=== PATIENT | female | born 1975 | race Caucasian/White ===

== ENCOUNTER 2017-02-05 09:59 | Observation (INO) | payer OTHER ==
[2017-02-04 11:58] LABS: ASPARTATE AMINO TRANSFERASE 35 U/L (15-37); BLOOD UREA NITROGEN 9 mg/dL (7-18)
[~2017-02-05] VITALS: Ht 167.6 cm; Wt 112.0 kg
[~2017-02-05 09:59] MED LIST: CELE200C PO; LISI-167 PO; METF500T4 PO; OMEP20TA62 PO; PRAV10TA2 PO; TRAM100T2 PO
[2017-02-05] MEDS: LACTATED RINGERS 1,000 ML IV SCH ×2 (11:16→19:00)
[2017-02-05] MEDS ORDERED: GABAPENTIN 300 MG CAPSULE ONE (12:45)
[2017-02-05] MEDS ORDERED: SCOPOLAMINE PATCH, 1.5MG PATCH.TD72 TD ONE ×2 (12:45)
[2017-02-05] MEDS ORDERED: ACETAMINOPHEN 500 MG TABLET ONE (12:45)
[2017-02-05] MEDS ORDERED: FENTANYL PF 250 MCG/5ML ONE (12:51)
[2017-02-05] MEDS ORDERED: MIDAZOLAM 1 MG/ML, 2ML ONE (12:51)
[2017-02-05] MEDS ORDERED: DEXAMETHASONE 4 MG/ML, 1ML ONE (13:43)
[2017-02-05] MEDS ORDERED: CEFAZOLIN 1,000 MG ONE (13:43)
[2017-02-05] MEDS ORDERED: PROPOFOL 10 MG/ML, 20ML ONE (13:43)
[2017-02-05] MEDS ORDERED: HYDROmorphone 2 MG/ML, 1ML ONE ×2 (14:41→17:37)
[2017-02-05] MEDS ORDERED: OXYcodone 5 MG/5 ML ORAL.SOL UDC PO PRN (15:00)
[2017-02-05] MEDS ORDERED: MEPERIDINE/PF 25MG/0.5ML IVPush PRN (15:00)
[2017-02-05] MEDS ORDERED: ALBUTEROL SULFATE 2.5 MG/3 ML NPPB PRN (15:00)
[2017-02-05] MEDS ORDERED: hydrALAzine 20 MG/ML, 1ML IV PRN (15:00)
[2017-02-05] MEDS ORDERED: LABETALOL 5MG/ML, 20ML IV PRN (15:00)
[2017-02-05] MEDS ORDERED: ACETAMINOPHEN 325 MG TABLET PO PRN (15:00)
[2017-02-05] MEDS ORDERED: PROMETHAZINE 25 MG/ML, 1ML IV PRN (15:00)
[2017-02-05] MEDS ORDERED: MAGNESIUM HYDROXIDE 8%, 30ML UDC PO PRN (16:00)
[2017-02-05] MEDS ORDERED: SENNA/DOCUSATE TABLET PO PRN (16:00)
[2017-02-05] MEDS ORDERED: ONDANSETRON 2MG/ML, 2ML IVPush PRN (16:00)
[2017-02-05] MEDS ORDERED: BISACODYL 10 MG SUPP PR PRN (16:00)
[2017-02-05] MEDS ORDERED: CEFAZOLIN PMX 2GM/50ML 50 ML IVPB SCH (16:00)
[2017-02-05] MEDS ORDERED: PROMETHAZINE 25 MG/ML, 1ML IM PRN (16:00)
[2017-02-05] MEDS ORDERED: ACETAMINOPHEN 650 MG/20.3 ML UDC ONE (16:04)
[2017-02-05] MEDS ORDERED: OXYcodone 5 MG/5 ML ORAL.SOL UDC ONE (16:04)
[2017-02-05] MEDS ORDERED: LORazepam 2 MG/ML, 1ML ONE (16:04)
[2017-02-05] MEDS ORDERED: FENTANYL PF 100 MCG/2ML ONE (16:05)
[2017-02-05] MEDS: OXYcodone 5 MG/5 ML ORAL.SOL UDC PO PRN (16:07)
[2017-02-05] MEDS: ACETAMINOPHEN 325 MG TABLET PO PRN (16:08)
[2017-02-05] MEDS: FENTANYL PF 100 MCG/2ML IV PRN ×4 (16:15→17:13)
[2017-02-05] MEDS: LORazepam 2 MG/ML, 1ML IVPush PRN ×2 (16:21→16:33)
[2017-02-05] MEDS ORDERED: CEFAZOLIN 2,000 MG in DEXTROSE 5% 50 ML IVPB SCH (16:30)
[2017-02-05] MEDS: HYDROmorphone 1 MG/ML, 1ML IV PRN ×2 (17:39→17:48)
[2017-02-05 18:37] VITALS: BP 145/90
[2017-02-05] MEDS: KETOROLAC 30 MG/1 ML IVPush SCH (18:45)
[2017-02-05] MEDS: HYDROcodone/APAP 5/325 TABLET PO PRN (20:31)
[2017-02-05 23:40] VITALS: BP 137/87
[2017-02-06] MEDS: morphine SULFATE 10 MG/ML, 1ML IVPush PRN ×7 (00:03→23:19)
[2017-02-06 03:02] VITALS: BP 113/67
[2017-02-06] MEDS: KETOROLAC 30 MG/1 ML IVPush SCH ×2 (03:25→11:31)
[2017-02-06] MEDS: OXYcodone 5 MG/5 ML ORAL.SOL UDC PO PRN ×6 (03:26→23:11)
[2017-02-06 06:40] VITALS: BP 134/88
[2017-02-06] MEDS: MULTIVITAMINS/MINERALS TABLET PO SCH (08:12)
[2017-02-06 13:55] VITALS: BP 103/62
[2017-02-06 20:51] VITALS: BP 120/75
[2017-02-06] MEDS: HYDROcodone/APAP 5/325 TABLET PO PRN (20:56)
[2017-02-07] MEDS ORDERED: OXYC5CAP2 PO (01:43)
[2017-02-07] MEDS ORDERED: ASPI-650 PO (01:45)
[2017-02-07] MEDS ORDERED: ONDA4TAB7 PO (01:45)
[2017-02-07] MEDS: HYDROcodone/APAP 5/325 TABLET PO PRN (02:21)
[2017-02-07] MEDS: OXYcodone 5 MG/5 ML ORAL.SOL UDC PO PRN ×3 (03:26→11:43)
[2017-02-07 03:59] VITALS: BP 100/60
[2017-02-07 07:09] VITALS: BP_SYST 129; BP_SYST 69; BP_DIAS 60; BP_DIAS 83
[2017-02-07] MEDS: morphine SULFATE 10 MG/ML, 1ML IVPush PRN (07:47)
[2017-02-07] MEDS: MULTIVITAMINS/MINERALS TABLET PO SCH (09:41)
[2017-02-07] MEDS: HYDROmorphone 2MG TABLET PO PRN ×2 (09:41→13:23)
[2017-02-07] MEDS: ACETAMINOPHEN 325 MG TABLET PO PRN (11:43)
[2017-02-07] MEDS ORDERED: HYDR2TAB29 PO (11:58)
[2017-02-07 12:41] VITALS: BP 126/80
== END 2017-02-07 14:00 | disposition home or self-care (01) ==
LOC: OUT 09:59 → ORIP 15:51 → 4NOR 18:22
PROVIDERS: ADMIT Orthopaedic Surgery; ATTEND Orthopaedic Surgery
DX: S82.121A Displaced fracture of lateral condyle of right tibia, initial encounter for closed fracture (principal); S83.281A Other tear of lateral meniscus, current injury, right knee, initial encounter; F32.9 Major depressive disorder, single episode, unspecified; E66.9 Obesity, unspecified; E11.9 Type 2 diabetes mellitus without complications; I10 Essential (primary) hypertension; E78.5 Hyperlipidemia, unspecified; K21.9 Gastro-esophageal reflux disease without esophagitis; Y99.8 Other external cause status; W20.8XXA Other cause of strike by thrown, projected or falling object, initial encounter; Y93.89 Activity, other specified; Y92.89 Other specified places as the place of occurrence of the external cause
CPT/HCPCS: 27403; 27535; 36415; 73590; 76000; 80053; 82962; 93005; 96365; 96375; 96376; 97162; 97166; C1713; C1762; G0378; J0690; J1100; J1170; J1885; J2060; J2250; J2270; J2704; J3010; J7120

== ENCOUNTER → 2020-09-19 | Outpatient (CLI) | payer BC, OTHER ==
[~2020-09-19] MED LIST changes: +ASPI325T20 PO; +HYDR2TAB29 PO; +METF500T17 PO; -METF500T4 PO; +ONDA4TAB7 PO; +OXYC5CAP2 PO; -TRAM100T2 PO; +TRAM100T33 PO
== END | disposition home or self-care (01) ==
LOC: CFH 13:01
PROVIDERS: ATTEND Family Medicine
DX: Z12.31 Encounter for screening mammogram for malignant neoplasm of breast (principal)
CPT/HCPCS: 77063; 77067